=== PATIENT | male | born 1990 | race Caucasian/White ===

== ENCOUNTER 2017-01-27 13:16 | Emergency (ER) | payer OTHER ==
[~2017-01-27] VITALS: Ht 170.2 cm; Wt 59.6 kg
[~2017-01-27 13:16] MED LIST: ACET-1311 PO; MTR/600 PO
[2017-01-27 13:22] VITALS: TEMP 36.6; Ht 170.2 cm; Wt 59.6 kg
[2017-01-27] MEDS ORDERED: ACET-1256 PO (14:09)
[2017-01-27] MEDS ORDERED: NAPR1TAB9 PO (14:09)
[2017-01-27] MEDS ORDERED: ONDANSETRON INJ 2 MG/ML 2 ML VIAL IV STA (14:17)
[2017-01-27] MEDS ORDERED: MoRPHine SULFATE 10 MG/ML CARP/VIAL IV STA (14:17)
[2017-01-27] MEDS ORDERED: OPTIRAY 320 IV PRN (14:30)
[2017-01-27 14:46] LABS: BASO % 0.5 %; BASO ABS # 0.03 K/uL (0-0.2); COMPLETE YES; EOS % 2.3 %; HEMATOCRIT 43.2 % (42-52); IG% 0.2 %; LYMPH % 32.4 %; MEAN CELL VOLUME 85.9 fL (80-100); MEAN CORPUSCULAR HEMOGLOBIN 30.8 pg (25-34); MEAN CORPUSCULAR HGB CONC 35.9 g/dl (32-36); MEAN PLATELET VOLUME 9.7 fL (7.4-10.4); MONO % 10.4 %; NEUT % 54.2 %; PLATELET COUNT 210 K/uL (130-400); RED BLOOD COUNT 5.03 M/uL (4.7-6.1); WHITE BLOOD COUNT 5.56 K/uL (4.8-10.8)
[2017-01-27 15:05] LABS: BUN/CREATININE RATIO 9.2 (10-20); CREATININE 0.88 mg/dl (0.60-1.40); POTASSIUM 4.4 mmol/L (3.5-5.1)
--- NOTE | 2017-01-27 15:37 | DIAGNOSTIC IMAGING REPORT ---
CT ABD/PELVIS IV CONTRAST ONLY CLINICAL HISTORY: Right lower quadrant and suprapubic pain. COMPARISON STUDY: 10/22/2015 TECHNIQUE: Following the IV administration of 92 mL of Optiray-320, CT scan of the abdomen and pelvis was performed from the lung bases to the proximal femurs. Images are reviewed in the axial, sagittal, and coronal planes. IV contrast was administered without complication. CT DOSE: 265.18 mGy.cm FINDINGS: Lower chest: There are minor left basilar atelectatic changes Liver: The contrast-enhanced liver is normal in size, contour, and attenuation. There is no intrahepatic biliary ductal dilatation. The hepatic veins and portal veins are patent. Gallbladder: Unremarkable. Spleen: Normal in size and attenuation. Pancreas: Unremarkable. Adrenal glands: Unremarkable. Kidneys: No renal masses are visualized. There is mild fullness of the right collecting system. No ureteral calculi are visualized. Bowel: There are no transition zones indicate bowel obstruction. By history the appendix is surgically absent. There is no acute diverticulitis. Peritoneum: There is no intraperitoneal free air or abdominal ascites. Vasculature: The abdominal aorta is normal in course and caliber. Adenopathy: None. Pelvic viscera: The bladder is mildly distended. Skeletal structures: No destructive osseous lesions are seen. IMPRESSION: 1. No evidence of bowel obstruction. No evidence of free air 2. Surgically absent appendix. No acute inflammatory changes 3. Mild fullness of the right renal collecting system and right ureter. No calculi are visualized 4. Mild bladder distention Electronically signed by: Cheo Morales M.D. 01/27/2017 3:35 PM Dictated Date/Time: 01/27/2017 3:29 PM
[2017-01-27] MEDS ORDERED: KETOROLAC TROMETHAMINE 30 MG/ML VIAL IV STA (15:45)
[2017-01-27 16:24] LABS: URINE APPEARANCE CLEAR (CLEAR); URINE BILIRUBIN NEG (NEG); URINE COLOR YELLOW; URINE NITRITE NEG (NEG); URINE SPECIFIC GRAVITY 1.021 (1.000-1.030); UROBILINOGEN NEG (NEG); ZZUR CULT IF INDIC CLEAN CATCH NO
[2017-01-27 16:30] LABS: MANUAL MICROSCOPIC REQUIRED? NO; REVIEW REQ? NO
--- NOTE | 2017-01-27 16:51 | EMERGENCY ROOM VISIT NOTE ---
History First contact with patient: 14:08 Chief Complaint: GROIN PAIN Stated Complaint: GROIN AND ABD. PAIN History of Present Illness The patient is a 26 year old male who presents to the Emergency Room via private vehicle with complaints of "groin and abdominal pain". The patient states that he is moving from apartments, and in the process of moving his furniture yesterday afternoon around 2 PM he nearly dropped a recliner. He states that he had to reposition, and during this time he felt a pull in his lower abdomen and groin region. He states that the pain has worsened. He also has a generalized allergic in the testicular region. He denies any fevers, chills, blood in the urine, blood in the bowels, bowel irregularity, leg weakness, numbness or tingling in genital region, bowel or bladder incontinence. Review of Systems A complete 6-point Review of Systems was discussed with the patient, with pertinent positives and negatives listed in the History of Present Illness. All remaining Review of Systems questions can be considered negative unless otherwise specified. Past Medical/Surgical History Medical Problems: (1) Abdominal pain (2) Asthma (3) Dental caries (4) Dentalgia (5) Pain, dental (6) Peritonsillar abscess (7) Tonsillitis Surgical Problems: (1) History of appendectomy Family History Diabetes mellitus FH: heart disease FH: lung disease Hypertension Social History Smoking Status: Current Every Day Smoker Alcohol Use: occasionally Marital Status: single Housing Status: lives with family Occupation Status: student Current/Historical Medications Scheduled PRN Oxycodone Ir (Roxicodone Ir), 1-2 TAB PO Q4H PRN for Pain Miscellaneous Medications Acetaminophen (Tylenol), 1,000 MG PO Naproxen (Aleve), 220 MG PO Allergies Coded Allergies: No Known Allergies (Unverified , 01/27/17) Physical Exam Vital Signs Date Time Temp Pulse Resp B/P (MAP) Pulse Ox O2 Delivery O2 Flow Rate FiO2 01/27/17 16:53 64 20 117/67 97 01/27/17 15:15 68 16 115/68 100 01/27/17 13:22 36.6 70 20 120/72 97 Room Air Physical Exam VITAL SIGNS - Vital signs and nursing notes were reviewed. Patient is afebrile , normotensive, non-tachycardic and saturating well on room air 97%. GENERAL -26-year-old male appearing his stated age who is in no acute distress. Communicates well with provider and answers questions appropriately. SKIN - Without rashes. Unremarkable. LUNGS - Chest wall symmetric without accessory muscle use, intercostals retractions, or central cyanosis. Normal vesicular breath sounds CTA B/L. No wheezes, rales, or rhonchi appreciated. CARDIAC - RRR with S1/S2. No murmur, rubs, or gallops appreciated. ABDOMEN - Abdominal contour without pulsations or visible masses. BS normoactive all four quadrants. There is tenderness in the right lower quadrant , and suprapubic region. No palpable masses, hepatosplenomegaly, or ascites noted. EXTREMITIES - No clubbing or peripheral cyanosis. No pretibial edema present. Unremarkable lower extremity examination. +5/5 strength noted in UE/LE bilaterally. NEUROLOGIC - Cranial nerves II through XII grossly intact. Sensory intact to light touch throughout. Patellar reflexes +2/4. - (Pt. rpovided consent) testicular examination unremarkable. No tenderness to palpation overlying the testes. No penile discharge. No hernia noted. Medical Decision & Procedures ER Provider Diagnostic Interpretation: CT ABD/PELVIS IV CONTRAST ONLY CLINICAL HISTORY: Right lower quadrant and suprapubic pain. COMPARISON STUDY: 10/22/2015 TECHNIQUE: Following the IV administration of 92 mL of Optiray-320, CT scan of the abdomen and pelvis was performed from the lung bases to the proximal femurs. Images are reviewed in the axial, sagittal, and coronal planes. IV contrast was administered without complication. CT DOSE: 265.18 mGy.cm FINDINGS: Lower chest: There are minor left basilar atelectatic changes Liver: The contrast-enhanced liver is normal in size, contour, and attenuation. There is no intrahepatic biliary ductal dilatation. The hepatic veins and portal veins are patent. Gallbladder: Unremarkable. Spleen: Normal in size and attenuation. Pancreas: Unremarkable. Adrenal glands: Unremarkable. Kidneys: No renal masses are visualized. There is mild fullness of the right collecting system. No ureteral calculi are visualized. Bowel: There are no transition zones indicate bowel obstruction. By history the appendix is surgically absent. There is no acute diverticulitis. Peritoneum: There is no intraperitoneal free air or abdominal ascites. Vasculature: The abdominal aorta is normal in course and caliber. Adenopathy: None. Pelvic viscera: The bladder is mildly distended. Skeletal structures: No destructive osseous lesions are seen. IMPRESSION: 1. No evidence of bowel obstruction. No evidence of free air 2. Surgically absent appendix. No acute inflammatory changes 3. Mild fullness of the right renal collecting system and right ureter. No calculi are visualized 4. Mild bladder distention Electronically signed by: Cheo Morales M.D. 01/27/2017 3:35 PM Dictated Date/Time: 01/27/2017 3:29 PM TESTICULAR ULTRASOUND HISTORY: Pain Testicular pain s/p heavy lifting COMPARISON: None. FINDINGS: Right testis: Maximum dimension 4.1 cm. Normal vascular flow. Left testis: Maximum dimension 4.2 cm. Normal vascular flow. Inguinal regions. No evidence for hernia IMPRESSION: Normal testicular ultrasound. No evidence for hernia within the inguinal regions. Small reactive lymph node within the right inguinal region Electronically signed by: Sergio Liz M.D. 01/27/2017 4:58 PM Dictated Date/Time: 01/27/2017 4:57 PM Laboratory Results 01/27/17 14:25 Red Blood Count 5.03, Mean Corpuscular Volume 85.9, Mean Corpuscular Hemoglobin 30.8, Mean Corpuscular Hemoglobin Concent 35.9, Mean Platelet Volume 9.7, Neutrophils (%) (Auto) 54.2, Lymphocytes (%) (Auto) 32.4, Monocytes (%) (Auto) 10.4, Eosinophils (%) (Auto) 2.3, Basophils (%) (Auto) 0.5, Neutrophils # (Auto ) 3.01, Lymphocytes # (Auto) 1.80, Monocytes # (Auto) 0.58, Eosinophils # (Auto ) 0.13, Basophils # (Auto) 0.03 01/27/17 14:25 Test 01/27/17 14:25 01/27/17 16:10 White Blood Count 5.56 K/uL (4.8-10.8) Red Blood Count 5.03 M/uL (4.7-6.1) Hemoglobin 15.5 g/dL (14.0-18.0) Hematocrit 43.2 % (42-52) Mean Corpuscular Volume 85.9 fL (80-100) Mean Corpuscular Hemoglobin 30.8 pg (25-34) Mean Corpuscular Hemoglobin Concent 35.9 g/dl (32-36) Platelet Count 210 K/uL (130-400) Mean Platelet Volume 9.7 fL (7.4-10.4) Neutrophils (%) (Auto) 54.2 % Lymphocytes (%) (Auto) 32.4 % Monocytes (%) (Auto) 10.4 % Eosinophils (%) (Auto) 2.3 % Basophils (%) (Auto) 0.5 % Neutrophils # (Auto) 3.01 K/uL (1.4-6.5) Lymphocytes # (Auto) 1.80 K/uL (1.2-3.4) Monocytes # (Auto) 0.58 K/uL (0.11-0.59) Eosinophils # (Auto) 0.13 K/uL (0-0.5) Basophils # (Auto) 0.03 K/uL (0-0.2) RDW Standard Deviation 37.5 fL (36.4-46.3) RDW Coefficient of Variation 12.0 % (11.5-14.5) Immature Granulocyte % (Auto) 0.2 % Immature Granulocyte # (Auto) 0.01 K/uL (0.00-0.02) Anion Gap 3.0 mmol/L (3-11) Est Creatinine Clear Calc Drug Dose 109.1 ml/min Estimated GFR () 139.3 Estimated GFR (Non- 120.2 BUN/Creatinine Ratio 9.2 (10-20) Calcium Level 9.0 mg/dl (8.5-10.1) Urine Color YELLOW Urine Appearance CLEAR (CLEAR) Urine pH 8.0 (4.5-7.5) Urine Specific Diller 1.021 (1.000-1.030) Urine Protein NEG (NEG) Urine Glucose (UA) NEG (NEG) Urine Ketones NEG (NEG) Urine Occult Blood NEG (NEG) Urine Nitrite NEG (NEG) Urine Bilirubin NEG (NEG) Urine Urobilinogen NEG (NEG) Urine Leukocyte Esterase NEG (NEG) Medications Administered Medications (Trade) Dose Ordered Sig/Cresencio Route Start Time Stop Time Status Last Admin Dose Admin Morphine Sulfate (MoRPHine SULFATE INJ) 6 mg NOW STAT IV 01/27/17 14:17 01/27/17 14:19 DC 01/27/17 14:32 6 MG Ondansetron HCl (Zofran Inj) 4 mg NOW STAT IV 01/27/17 14:17 01/27/17 14:19 DC 01/27/17 14:32 4 MG Ketorolac Tromethamine (Toradol Inj) 30 mg NOW STAT IV 01/27/17 15:45 01/27/17 15:46 DC 01/27/17 16:30 30 MG Medical Decision Patient was seen and evaluated as above. After obtaining a thorough history and physical examination IV access was initiated and the above workup was performed. He presents to us today with inferior quadrant abdominal pain, suprapubic abdominal pain and testicular pain. This is all status post heavy lifting. Clinically he appears well. His vital signs are stable. He has been urinating and defecating without difficulty. There has been no blood within these functions. He requests nothing for pain. Testicular ultrasound, and CT abdomen and pelvis were obtained secondary to his presentation. These are negative for acute process. His lab work is unremarkable. At this time I suspect he is experiencing a muscle strain. He was educated upon management. He will be provided a short-term prescription for this. No red flags identified and the [place] drug monitoring system. The be given OxyIR. He was educated upon management, educated upon worrisome symptoms in which to return, had questions about discharge, and was discharged home in good condition. He is a follow-up regarding these findings of his CT scan. In evaluation treatment this patient following differential diagnoses were entertained: Intra-abdominal rupture, appendicitis, hernia, testicular rupture, among others. Impression Primary Impression: Abdominal pain Departure Information Dispostion Home / Self-Care Condition GOOD Prescriptions Oxycodone Ir (Roxicodone Ir) 5 Mg Tab 1-2 TAB PO Q4H Y for Pain, #21 TAB For Initial Treatment Prov: Elliot Giang PA-C 01/27/17 Referrals No Doctor, Assigned (PCP) Patient Instructions My [facility] Additional Instructions You have been treated in the Emergency Department your Abdominal Pain. Laboratory results and imaging studies have ruled out any emergent causes for your abdominal pain which would warrant admission or surgery. You have been prescribed Oxy IR to be used for pain control. This is a narcotic medication. You cannot drive or consume alcohol while on this medicine. This medicine should only be used for pain that cannot be controlled with over-the- counter pain medicines. For pain control, you can use the following [id number] medicines (if >12 yo): - Regular strength (325mg/tab) Tylenol (acetaminophen) 2 tabs every 4-6 hours as needed. Do not exceed 12 tablets in a 24 hour period. Avoid taking more than 4 grams (4000 mg) of Tylenol per day. This includes any other sources of acetaminophen you may take on a regular basis. - Regular strength (200 mg/tab) Advil (ibuprofen) 1-2 tabs every 4-6 hours as needed. Do not exceed a dose of 3200 mg per day. Drink plenty of water and stay well hydrated. As with any trip to the Emergency Department, you should follow-up with your Primary Care Provider from today's visit. Follow up for right renal fullness noted. Return to the emergency department if your symptoms persist despite treatment plan outlined above or if the following symptoms occur: increased fevers, chills , worsening nausea/vomiting, blood in your stool or urine. CT SCAN: CT ABD/PELVIS IV CONTRAST ONLY CLINICAL HISTORY: Right lower quadrant and suprapubic pain. COMPARISON STUDY: 10/22/2015 TECHNIQUE: Following the IV administration of 92 mL of Optiray-320, CT scan of the abdomen and pelvis was performed from the lung bases to the proximal femurs. Images are reviewed in the axial, sagittal, and coronal planes. IV contrast was administered without complication. CT DOSE: 265.18 mGy.cm FINDINGS: Lower chest: There are minor left basilar atelectatic changes Liver: The contrast-enhanced liver is normal in size, contour, and attenuation. There is no intrahepatic biliary ductal dilatation. The hepatic veins and portal veins are patent. Gallbladder: Unremarkable. Spleen: Normal in size and attenuation. Pancreas: Unremarkable. Adrenal glands: Unremarkable. Kidneys: No renal masses are visualized. There is mild fullness of the right collecting system. No ureteral calculi are visualized. Bowel: There are no transition zones indicate bowel obstruction. By history the appendix is surgically absent. There is no acute diverticulitis. Peritoneum: There is no intraperitoneal free air or abdominal ascites. Vasculature: The abdominal aorta is normal in course and caliber. Adenopathy: None. Pelvic viscera: The bladder is mildly distended. Skeletal structures: No destructive osseous lesions are seen. IMPRESSION: 1. No evidence of bowel obstruction. No evidence of free air 2. Surgically absent appendix. No acute inflammatory changes 3. Mild fullness of the right renal collecting system and right ureter. No calculi are visualized 4. Mild bladder distention Problem Qualifiers Primary Impression: Abdominal pain Abdominal location: lower abdomen, unspecified Qualified Codes: R10.30 - Lower abdominal pain, unspecified
[2017-01-27 16:53] VITALS: BP 117/67; PULSE 64; O2SAT 97
--- NOTE | 2017-01-27 17:00 | DIAGNOSTIC IMAGING REPORT ---
TESTICULAR ULTRASOUND HISTORY: Pain Testicular pain s/p heavy lifting COMPARISON: None. FINDINGS: Right testis: Maximum dimension 4.1 cm. Normal vascular flow. Left testis: Maximum dimension 4.2 cm. Normal vascular flow. Inguinal regions. No evidence for hernia IMPRESSION: Normal testicular ultrasound. No evidence for hernia within the inguinal regions. Small reactive lymph node within the right inguinal region Electronically signed by: Sergio Liz M.D. 01/27/2017 4:58 PM Dictated Date/Time: 01/27/2017 4:57 PM
[2017-01-27] MEDS ORDERED: OXYC1TAB3 PO (17:14)
== END 2017-01-27 17:28 | disposition home or self-care (01) ==
LOC: C.EDB 13:17 → C.EDD 17:28
DX: N50.819 Testicular pain, unspecified (principal); R10.31 Right lower quadrant pain; F17.210 Nicotine dependence, cigarettes, uncomplicated

== ENCOUNTER 2017-02-12 15:43 | Emergency (ER) | payer OTHER ==
[~2017-02-12] VITALS: Ht 170.2 cm; Wt 57.6 kg
[~2017-02-12 15:43] MED LIST changes: +ACET-1256 PO; -ACET-1311 PO; -MTR/600 PO; +NAPR1TAB9 PO; +OXYC1TAB3 PO
[2017-02-12 15:47] VITALS: TEMP 36.8; Ht 170.2 cm; Wt 57.6 kg
[2017-02-12] MEDS ORDERED: KETOROLAC TROMETHAMINE 30 MG/ML VIAL IV STA (16:23)
[2017-02-12] MEDS ORDERED: METOCLOPRAMIDE HCL INJ 5 MG/ML 2 ML VIAL IV STA (16:23)
[2017-02-12] MEDS ORDERED: SODIUM CHLORIDE 0.9% 1000ML 1,000 ML IV STA (16:23)
[2017-02-12] MEDS ORDERED: HYDROmorphone INJ 1 MG/ML SYR IV STA (16:23)
[2017-02-12] MEDS ORDERED: OPTIRAY 320 IV PRN (16:30)
[2017-02-12 17:10] LABS: BASO % 0.5 %; BASO ABS # 0.03 K/uL (0-0.2); COMPLETE YES; EOS % 1.8 %; HEMATOCRIT 43.1 % (42-52); IG% 0.2 %; LYMPH % 21.7 %; LYMPH ABS # 1.43 K/uL (1.2-3.4); MEAN CELL VOLUME 87.2 fL (80-100); MEAN CORPUSCULAR HGB CONC 36.7 g/dl (32-36); MEAN PLATELET VOLUME 9.5 fL (7.4-10.4); NEUT % 65.8 %; PLATELET COUNT 186 K/uL (130-400); RED BLOOD COUNT 4.94 M/uL (4.7-6.1)
[2017-02-12 17:13] LABS: URINE APPEARANCE TURBID (CLEAR); URINE COLOR DK YELLOW; URINE EPITHELIAL CELL AUTO >30 /lpf (0-5); URINE NITRITE NEG (NEG); URINE PH 8.5 (4.5-7.5); URINE SPECIFIC GRAVITY 1.035 (1.000-1.030); UROBILINOGEN NEG (NEG)
--- NOTE | 2017-02-12 17:14 | EMERGENCY ROOM VISIT NOTE ---
History Report prepared by Chantel: Ramila Candelario Under the Supervision of: Dr. Tereso Rivera M.D. First contact with patient: 15:50 Chief Complaint: GROIN PAIN Stated Complaint: DENTAL PAIN,PROLONGED GROIN AND AB PAIN History of Present Illness The patient is a 26 year old male who presents to the Emergency Room with complaints of worsening right groin pain for the past 2-3 weeks. The patient states that he injured his right groin area 2-3 weeks ago when he was trying to move furniture by himself. His pain radiates into his right abdomen. The patient rates his pain as an 8/10 in severity. He states that he is now unable to pear picker his 3 year old niece due to the pain. The patient also reports that one of his fillings fell out and he is now experiencing dental pain too. He has been taking Tylenol and naproxen for pain. He states he has not taken anything since last night before bed. Source of History: patient Onset: 2-3 weeks ago Position: other (right groin) Symptom Intensity: 8/10 Quality: other (radiating) Timing: worsening Modifying Factors (Relieving): tylenol, other (naproxen) Associated Symptoms: + abdominal pain Note: Pt notes dental pain. Review of Systems See HPI for pertinent positives & negatives. A total of 10 systems reviewed and were otherwise negative. Past Medical & Surgical Medical Problems: (1) Abdominal pain (2) Asthma (3) Dental caries (4) Dentalgia (5) Pain, dental (6) Peritonsillar abscess (7) Tonsillitis Surgical Problems: (1) History of appendectomy Family History Diabetes mellitus FH: heart disease FH: lung disease Hypertension Social History Smoking Status: Current Every Day Smoker Alcohol Use: occasionally Marital Status: single Housing Status: lives with family Occupation Status: student Current/Historical Medications Scheduled Penicillin V Potassium (Veetids), 1 TAB PO QID Scheduled PRN Oxycodone/Acetaminophen 5MG/325MG (Percocet 5MG/325MG), 1-2 TAB PO Q4H PRN for Pain Allergies Coded Allergies: No Known Allergies (Unverified , 02/12/17) Physical Exam Vital Signs Date Time Temp Pulse Resp B/P (MAP) Pulse Ox O2 Delivery O2 Flow Rate FiO2 02/12/17 20:12 65 16 101/60 100 Room Air 6/21/17 19:44 62 18 104/70 100 Room Air 02/12/17 18:32 57 16 95/51 100 Room Air 02/12/17 17:30 76 02/12/17 17:15 75 14 110/67 100 Room Air 02/12/17 15:47 36.8 124 16 122/79 99 Room Air Physical Exam GENERAL: Patient is a healthy-appearing well-nourished young male. HEAD: Normocephalic atraumatic EYES: Ocular movements intact pupils equal and react to light OROPHARYNX mucous membranes are moist no exudates present no erythema or edema present NECK: Supple no nuchal rigidity CHEST: Good equal expansion LUNGS: Clear and equal to auscultation CARDIAC: Normal S1 and S2 ABDOMEN: Soft nontender no guarding BACK: No CVA tenderness EXTREMITIES: No pain upon palpation normal muscle strength in all groups no clubbing cyanosis or edema NEURO: Patient is following commands and answering questions appropriately. Alert and oriented x3 Cranial Nerves 2-12 grossly intact Medical Decision & Procedures ER Provider Diagnostic Interpretation: Radiology results as stated below per my review and radiologist interpretation: CT ABD/PELVIS IV AND ORAL CONT CLINICAL HISTORY: Generalized abdominal pain COMPARISON STUDY: 01/27/2017 TECHNIQUE: Following the IV administration of 115 mL of Optiray-320, CT scan of the abdomen and pelvis was performed from the lung bases to the proximal femurs. Images are reviewed in the axial, sagittal, and coronal planes. IV contrast was administered without complication. CT DOSE: 276.23 mGy.cm FINDINGS: Lower chest: There are minimal dependent atelectatic changes. Liver: The contrast-enhanced liver is normal in size, contour, and attenuation. There is no intrahepatic biliary ductal dilatation. The hepatic veins and portal veins are patent. Gallbladder: Unremarkable. Spleen: Normal in size and attenuation. Pancreas: Unremarkable. Adrenal glands: Unremarkable. Kidneys: No renal masses are visualized. There is minimal prominence the right renal collecting system similar to the prior study. Bowel: There are no transition zones indicate bowel obstruction. There is no evidence of acute diverticulitis. There is no pathologic bowel wall thickening. By history the appendix is surgically absent. Peritoneum: There is no intraperitoneal free air or abdominal ascites. Vasculature: The abdominal aorta is normal in course and caliber. Adenopathy: None. Pelvic viscera: The bladder, and pelvic viscera are unremarkable. Skeletal structures: No destructive osseous lesions are seen. IMPRESSION: 1. No acute intra-abdominal or pelvic findings 2. No evidence of bowel obstruction. No evidence of free air 3. Minimal fullness of the right renal collecting system, unchanged from the prior study. 4. No evidence of acute diverticulitis Electronically signed by: Cheo Morales M.D. 02/12/2017 7:42 PM Dictated Date/Time: 02/12/2017 7:36 PM Laboratory Results 02/12/17 16:55 Red Blood Count 4.94, Mean Corpuscular Volume 87.2, Mean Corpuscular Hemoglobin 32.0, Mean Corpuscular Hemoglobin Concent 36.7, Mean Platelet Volume 9.5, Neutrophils (%) (Auto) 65.8, Lymphocytes (%) (Auto) 21.7, Monocytes (%) (Auto) 10.0, Eosinophils (%) (Auto) 1.8, Basophils (%) (Auto) 0.5, Neutrophils # (Auto ) 4.35, Lymphocytes # (Auto) 1.43, Monocytes # (Auto) 0.66, Eosinophils # (Auto ) 0.12, Basophils # (Auto) 0.03 02/12/17 16:55 Test 02/12/17 16:45 02/12/17 16:55 Urine Color DK YELLOW Urine Appearance TURBID (CLEAR) Urine pH 8.5 (4.5-7.5) Urine Specific Woodward 1.035 (1.000-1.030) Urine Protein NEG (NEG) Urine Glucose (UA) NEG (NEG) Urine Ketones TRACE (NEG) Urine Occult Blood NEG (NEG) Urine Nitrite NEG (NEG) Urine Bilirubin NEG (NEG) Urine Urobilinogen NEG (NEG) Urine Leukocyte Esterase NEG (NEG) Urine WBC (Auto) 1-5 /hpf (0-5) Urine RBC (Auto) 0-4 /hpf (0-4) Urine Hyaline Casts (Auto) 10-30 /lpf (0-5) Urine Epithelial Cells (Auto) >30 /lpf (0-5) Urine Bacteria (Auto) NEG (NEG) Urine Renal Epithelial Cells /lpf (0-5) White Blood Count 6.60 K/uL (4.8-10.8) Red Blood Count 4.94 M/uL (4.7-6.1) Hemoglobin 15.8 g/dL (14.0-18.0) Hematocrit 43.1 % (42-52) Mean Corpuscular Volume 87.2 fL (80-100) Mean Corpuscular Hemoglobin 32.0 pg (25-34) Mean Corpuscular Hemoglobin Concent 36.7 g/dl (32-36) Platelet Count 186 K/uL (130-400) Mean Platelet Volume 9.5 fL (7.4-10.4) Neutrophils (%) (Auto) 65.8 % Lymphocytes (%) (Auto) 21.7 % Monocytes (%) (Auto) 10.0 % Eosinophils (%) (Auto) 1.8 % Basophils (%) (Auto) 0.5 % Neutrophils # (Auto) 4.35 K/uL (1.4-6.5) Lymphocytes # (Auto) 1.43 K/uL (1.2-3.4) Monocytes # (Auto) 0.66 K/uL (0.11-0.59) Eosinophils # (Auto) 0.12 K/uL (0-0.5) Basophils # (Auto) 0.03 K/uL (0-0.2) RDW Standard Deviation 38.8 fL (36.4-46.3) RDW Coefficient of Variation 12.1 % (11.5-14.5) Immature Granulocyte % (Auto) 0.2 % Immature Granulocyte # (Auto) 0.01 K/uL (0.00-0.02) Anion Gap 6.0 mmol/L (3-11) Est Creatinine Clear Calc Drug Dose 84.4 ml/min Estimated GFR () 108.3 Estimated GFR (Non- 93.5 BUN/Creatinine Ratio 14.3 (10-20) Calcium Level 8.5 mg/dl (8.5-10.1) Total Bilirubin 0.5 mg/dl (0.2-1) Direct Bilirubin 0.1 mg/dl (0-0.2) Aspartate Amino Transf (AST/SGOT) 13 U/L (15-37) Alanine Aminotransferase (ALT/SGPT) 32 U/L (12-78) Alkaline Phosphatase 82 U/L (45-117) Total Protein 7.6 gm/dl (6.4-8.2) Albumin 4.1 gm/dl (3.4-5.0) Lipase 123 U/L (73-393) Labs reviewed by ED physician. Medications Administered Medications (Trade) Dose Ordered Sig/Cresencio Route Start Time Stop Time Status Last Admin Dose Admin Sodium Chloride 1,000 ml @ 999 mls/hr Q1H1M STAT IV 02/12/17 16:23 02/12/17 17:23 DC 02/12/17 16:23 999 MLS/HR Ketorolac Tromethamine (Toradol Inj) 30 mg NOW STAT IV 02/12/17 16:23 02/12/17 16:26 DC 02/12/17 17:11 30 MG Hydromorphone HCl (Dilaudid Inj) 1 mg NOW STAT IV 02/12/17 16:23 02/12/17 16:26 DC 02/12/17 17:11 1 MG Metoclopramide HCl (Reglan Inj) 10 mg NOW STAT IV 02/12/17 16:23 02/12/17 16:26 DC 02/12/17 17:10 10 MG Oxycodone/ Acetaminophen (Percocet 5/ 325MG Home Pack) 1 homepack UD ONCE PO 02/12/17 20:15 02/12/17 20:16 DC 02/12/17 20:15 1 HOMEPACK Penicillin V Potassium (Pen-Vk 500MG Home Pack) 1 homepack UD ONCE PO 02/12/17 20:15 02/12/17 20:16 DC 02/12/17 20:15 1 HOMEPACK Penicillin V Potassium (Veetids Tab) 500 mg NOW ONCE PO 02/12/17 20:15 02/12/17 20:16 DC 02/12/17 20:22 500 MG ED Course 1550: Past medical records reviewed. The patient was evaluated in room C8. A complete history and physical examination was performed. 1623: Reglan 10 mg IV, Dilaudid 1 mg IV, Toradol 30 mg IV, NSS 1000 ml @ 999 mls /hr IV 1901: I updated the patient and he is doing well. 2000: I reassessed the patient at this time. hE is feeling better and resting comfortably. I discussed the results and treatment plan with the patient. I answered all pertaining questions that he had. He expressed understanding and verbalized agreement. The patient will be discharged home. 2015: Veetids tab 500 mg PO, Penicillin V Potassium 1 homepack PO, Percocet 5/ 325 mg PO 1 homepack Medical Decision Differential diagnosis: Etiologies such as appendicitis, diverticulitis, PUD, biliary pathology, UTI, pancreatitis, obstruction, mesenteric ischemia, aortic pathology, infections, inflammatory bowel disease, renal colic, as well as others were entertained. Medication Reconciliation: I attest that I have personally reviewed the patient' s current medication list. Blood Pressure Screening: Patient was found to have normal blood pressure on screening and does not require follow up. This is a 26-year-old male who presents emergency department complaining of diffuse abdominal pain as well as dental pain. The patient was first seen in the emergency department and had a CT scan without oral contrast. Due to how thin the patient is and the pain he is experiencing he was sent for CAT scan of the abdomen pelvis with contrast. In the meantime patient was given an IV along saline bolus, Toradol, Dilaudid. Repeat examination revealed improvement patient's symptoms. I do feel that the patient as well as to be discharged home for follow-up with primary care physician. Patient was in agreement with the treatment plan. Impression Primary Impression: Abdominal pain Scribe Attestation The scribe's documentation has been prepared under my direction and personally reviewed by me in its entirety. I confirm that the note above accurately reflects all work, treatment, procedures, and medical decision making performed by me. Departure Information Dispostion Home / Self-Care Prescriptions Oxycodone/Acetaminophen 5MG/325MG (PERCOCET 5MG/325MG) Tab 1-2 TAB PO Q4H Y for Pain, #14 TAB Prov: Tereso Rivera MD 02/12/17 Penicillin V Potassium (VEETIDS) 500 Mg Tab 1 TAB PO QID for 10 Days, #40 TAB Prov: Tereso Rivera MD 02/12/17 Referrals No Doctor, Assigned (PCP) Forms HOME CARE DOCUMENTATION FORM, IMPORTANT VISIT INFORMATION, WORK / SCHOOL INSTRUCTIONS Patient Instructions Abdominal Pain - [facility], Diet Clear Liquid Dc, ED Tooth Pain, My [facility] Additional Instructions Follow up with your Primary Care Physician (PCP). For a new PCP call [phone]. Follow up with Dr Vigil's office Clear liquid diet next 48 hours You received narcotic or benzodiazepene medication while in the emergency room today. Do not drive, operate heavy machinery, or drink alcohol under the influence of this medication. Take 600 mg Ibuprofen every 6 hours Take Percocet for breakthrough pain You have been examined and treated today on an emergency basis only. This is not a substitute for, or an effort to provide, complete comprehensive medical care. It is impossible to recognize and treat all injuries or illnesses in a single emergency department visit. It is therefore important that you follow up closely with your PCP. Call as soon as possible for an appointment. Thank you for your time and consideration. I look forward to speaking with you again soon. Please don't hesitate to call us if you have any questions. Problem Qualifiers Primary Impression: Abdominal pain Abdominal location: generalized Qualified Codes: R10.84 - Generalized abdominal pain
[2017-02-12 17:26] LABS: MANUAL MICROSCOPIC REQUIRED? NO; REVIEW REQ? YES; SULFASALICYLIC ACID NEG (NEG); URINE BILIRUBIN NEG (NEG)
[2017-02-12 17:32] LABS: BUN/CREATININE RATIO 14.3 (10-20); CALCIUM 8.5 mg/dl (8.5-10.1); CREATININE 1.1 mg/dl (0.60-1.40); POTASSIUM 4.2 mmol/L (3.5-5.1)
--- NOTE | 2017-02-12 19:43 | DIAGNOSTIC IMAGING REPORT ---
CT ABD/PELVIS IV AND ORAL CONT CLINICAL HISTORY: Generalized abdominal pain COMPARISON STUDY: 01/27/2017 TECHNIQUE: Following the IV administration of 115 mL of Optiray-320, CT scan of the abdomen and pelvis was performed from the lung bases to the proximal femurs. Images are reviewed in the axial, sagittal, and coronal planes. IV contrast was administered without complication. CT DOSE: 276.23 mGy.cm FINDINGS: Lower chest: There are minimal dependent atelectatic changes. Liver: The contrast-enhanced liver is normal in size, contour, and attenuation. There is no intrahepatic biliary ductal dilatation. The hepatic veins and portal veins are patent. Gallbladder: Unremarkable. Spleen: Normal in size and attenuation. Pancreas: Unremarkable. Adrenal glands: Unremarkable. Kidneys: No renal masses are visualized. There is minimal prominence the right renal collecting system similar to the prior study. Bowel: There are no transition zones indicate bowel obstruction. There is no evidence of acute diverticulitis. There is no pathologic bowel wall thickening. By history the appendix is surgically absent. Peritoneum: There is no intraperitoneal free air or abdominal ascites. Vasculature: The abdominal aorta is normal in course and caliber. Adenopathy: None. Pelvic viscera: The bladder, and pelvic viscera are unremarkable. Skeletal structures: No destructive osseous lesions are seen. IMPRESSION: 1. No acute intra-abdominal or pelvic findings 2. No evidence of bowel obstruction. No evidence of free air 3. Minimal fullness of the right renal collecting system, unchanged from the prior study. 4. No evidence of acute diverticulitis Electronically signed by: Cheo Morales M.D. 02/12/2017 7:42 PM Dictated Date/Time: 02/12/2017 7:36 PM
[2017-02-12] MEDS ORDERED: OXYC-57 PO (20:07)
[2017-02-12] MEDS ORDERED: PENI500T2 PO (20:07)
[2017-02-12 20:12] VITALS: BP 101/60; PULSE 65; O2SAT 100
[2017-02-12] MEDS ORDERED: PENICILLIN HOME PACK 500MG (4 DOSES)BTL PO ONE (20:15)
[2017-02-12] MEDS ORDERED: PERCOCET HOME PACK PO ONE (20:15)
[2017-02-12] MEDS ORDERED: PENICILLIN V POTASSIUM 250 MG TAB PO ONE (20:15)
== END 2017-02-12 20:34 | disposition home or self-care (01) ==
LOC: C.EDB 15:44 → C.EDC 20:34
DX: R10.84 Generalized abdominal pain (principal); J45.909 Unspecified asthma, uncomplicated; F17.210 Nicotine dependence, cigarettes, uncomplicated; Z83.3 Family history of diabetes mellitus; Z82.49 Family history of ischemic heart disease and other diseases of the circulatory system

== ENCOUNTER 2017-04-26 15:33 | Emergency (ER) | payer OTHER ==
[~2017-04-26] VITALS: Ht 170.2 cm; Wt 56.7 kg
[~2017-04-26 15:33] MED LIST changes: -ACET-1256 PO; -NAPR1TAB9 PO; +OXYC-57 PO; -OXYC1TAB3 PO
[2017-04-26 15:37] VITALS: Ht 170.2 cm; Wt 56.7 kg
[2017-04-26] MEDS ORDERED: NAPR1TAB9 PO (15:47)
[2017-04-26] MEDS ORDERED: ACET-1256 PO (15:47)
[2017-04-26] MEDS ORDERED: IBUP-1050 PO (15:47)
[2017-04-26] MEDS ORDERED: CLIN300C2 PO (15:59)
--- NOTE | 2017-04-26 16:00 | EMERGENCY ROOM VISIT NOTE ---
ED Visit Note First contact with patient: 15:40 CHIEF COMPLAINT: Toothache HISTORY OF PRESENT ILLNESS: This 26-year-old male patient presented to the emergency department ambulatory with a progressive toothache for past to to 4 days. The patient believes it is coming from right upper tooth. The pain is now steady and severe and radiates to the face. The patient does have a dentist appointment set up. The patient states that he saw his dentist earlier this week and was prescribed antibiotics but he did not pick them up. They rate their pain a 10/10 and the ibuprofen and Tylenol they have been taking has not relieved the pain. Denies facial swelling or fever. The patient denies any discharge from the mouth. REVIEW OF SYSTEMS: A 6 system review of systems was completed with positives and pertinent negatives listed in the HPI. ALLERGIES: No known drug allergies MEDICATIONS: None PMH: None SOCIAL HISTORY: She lives locally PHYSICAL EXAM: Vitals are noted on the nurse's note and reviewed by myself. Vital signs stable. Temperature []C orally. GENERAL: This is a 26-year-old male, in no acute distress, nondiaphoretic, well-developed well-nourished. Mouth: The right upper tooth is very carious and the gum is swollen and tender around it, without any discharge or signs of an abscess. The remainder of the pharynx and tonsils are without erythema, edema, or exudate. The airway is patent. There is no facial swelling, cervical or submandibular lymphadenopathy. The patient appears uncomfortable and in pain. The patient has overall fair dental hygiene. ED COURSE: The patient was seen and examined. He is afebrile. He is nontoxic in appearance. He has no facial swelling. There is no drainage. The patient initially stated that his dentist did nothing for him but then stated he wrote a prescription for antibiotics which the patient has not yet picked up or started. I did review the prescription drug monitoring website. The patient has received 22 prescriptions from 19 providers and used 8 different pharmacies in the last several years. He has gotten prescriptions in multiple different cities. The quantities are usually for a very small amount. He has been to this emergency department multiple times for dental pain in the last time was told that he would not be prescribed narcotics anymore for dental pain. I agreed to give the patient a prescription for clindamycin. He should try Anbesol. He was counseled on the appropriate use of Tylenol and ibuprofen. He was given information for [facility] and Dr. Cates. He was advised that the antibiotic would be the most helpful thing. I advised him I'm not comfortable prescribing him narcotics at this time. He should return with worsening symptoms. Problem List Medical Problems: (1) Abdominal pain Status: Resolved (2) Asthma Status: Chronic (3) Dental caries Status: Chronic (4) Dentalgia Status: Resolved (5) Pain, dental Status: Resolved (6) Peritonsillar abscess Status: Resolved (7) Tonsillitis Status: Resolved Surgical Problems: (1) History of appendectomy Status: Resolved Current/Historical Medications Scheduled Clindamycin Hcl (Cleocin), 300 MG PO QID Scheduled PRN Acetaminophen (Tylenol), 1,000 MG PO DIRECTED PRN for Pain Ibuprofen (Advil), 200-800 MG PO Q4H PRN for Pain Naproxen (Aleve), 220-440 MG PO DIRECTED PRN for Pain Allergies Coded Allergies: No Known Allergies (Unverified , 04/26/17) Vital Signs Date Time Temp Pulse Resp B/P (MAP) Pulse Ox O2 Delivery O2 Flow Rate FiO2 04/26/17 16:07 36.5 83 20 120/66 100 04/26/17 15:37 36.5 83 20 120/66 100 Room Air Departure Information Impression Primary Impression: Dental caries Dispostion Home / Self-Care Condition GOOD Prescriptions Clindamycin Hcl (CLEOCIN) 300 Mg Cap 300 MG PO QID for 7 Days, #28 CAP Prov: Aggie Peck PA-C 04/26/17 Referrals No Doctor, Assigned (PCP) Deshawn Cates M.D. Patient Instructions My [facility] Additional Instructions Clindamycin every 6 hours for 7 days for infection Motrin 600 mg every 6-8 hours or moderate pain Tylenol 1 g every 4-6 hours but do not exceed 4 g of Tylenol in 24 hours You may try Anbesol Contact [facility], Dr. Cates or one of the maxillofacial surgeons to schedule a follow-up appointment Return with fevers or any worsening symptoms
[2017-04-26 16:07] VITALS: BP 120/66; PULSE 83; TEMP 36.5; O2SAT 100
== END 2017-04-26 16:07 | disposition home or self-care (01) ==
LOC: C.EDB 15:35 → C.EDD 16:07
DX: K02.9 Dental caries, unspecified (principal); J45.909 Unspecified asthma, uncomplicated

== ENCOUNTER 2017-07-30 07:12 | Emergency (ER) | payer OTHER ==
[~2017-07-30] VITALS: Ht 170.2 cm; Wt 54.8 kg
[~2017-07-30 07:12] MED LIST changes: +ACET-1256 PO; +IBUP-1050 PO; +NAPR1TAB9 PO; -OXYC-57 PO
[2017-07-30 07:17] VITALS: TEMP 36.6; Ht 170.2 cm; Wt 54.8 kg
[2017-07-30] MEDS ORDERED: MoRPHine SULFATE 4 MG/ML 1 ML CARP\\VIAL IV STA (08:02)
--- NOTE | 2017-07-30 08:08 | EMERGENCY ROOM VISIT NOTE ---
History First contact with patient: 07:32 Chief Complaint: GROIN PAIN Stated Complaint: GROIN/ABDOMINAL PAIN/INJURY History of Present Illness The patient is a 27 year old male who presents to the Emergency Room with complaints of groin injury. Patient states that he was getting something out of the attic stepping over an exercise bike and he tripped and fell, straddling a metal bar and landing directly on his testicles. He states he initially had pain that seemed to improve and he went to bed without any significant pain. This morning when he woke up and got out of bed, he had immediate sharp pain on the left with standing. He states the pain radiates up from the testicle into his groin and lower abdomen. He denies any significant injury to his testicles in the past. He denies any hematuria, dysuria, or purulent drainage from the penis. He denies any significant swelling or bruising. He tried ice to the area, however he states that this did not help. He has not taken any medications for the pain. He denies any other associated injuries, denies headache, denies chest pain, denies shortness of breath, denies back pain. Review of Systems A complete 10 point review of systems was reviewed with the patient with pertinent positives and negatives as per history of present illness. All else were negative. Past Medical/Surgical History Medical Problems: (1) Abdominal pain (2) Asthma (3) Dental caries (4) Dentalgia (5) Pain, dental (6) Peritonsillar abscess (7) Tonsillitis Surgical Problems: (1) History of appendectomy Family History Diabetes mellitus FH: heart disease FH: lung disease Hypertension Social History Smoking Status: Current Every Day Smoker Alcohol Use: occasionally Marital Status: single Housing Status: lives with family Occupation Status: student Current/Historical Medications Scheduled PRN Acetaminophen (Tylenol), 1,000 MG PO DIRECTED PRN for Pain Ibuprofen (Advil), 200-800 MG PO Q4H PRN for Pain Naproxen (Aleve), 220-440 MG PO DIRECTED PRN for Pain Allergies NKA Physical Exam Vital Signs Date Time Temp Pulse Resp B/P (MAP) Pulse Ox O2 Delivery O2 Flow Rate FiO2 07/30/17 10:34 72 18 105/62 98 07/30/17 09:12 77 18 102/60 97 Room Air 07/30/17 07:17 36.6 116 18 131/86 100 Room Air Physical Exam CONSTITUTIONAL: No acute distress, but does appear to be in some pain. Well appearing and well nourished. Alert and oriented X 4 with normal affect. HEENT: Normocephalic, atraumatic. Pupils equal, round and reactive to light, EOMI. TMs normal. Pharynx normal. NECK: Supple, full active range of motion without discomfort. RESPIRATORY: Clear to auscultation bilaterally with no wheezing, crackles, rhonchi or stridor. Equal expansion bilaterally. CARDIOVASCULAR: Regular rate and rhythm with no murmurs, rubs or gallops. Normal peripheral perfusion. No edema. GASTROINTESTINAL: Tenderness along the left inguinal crease into the left lower quadrant to palpation. Abdomen is otherwise soft, nontender, and nondistended. Bowel sounds present in all quadrants. GENITOURINARY: Testicles descended and equal bilaterally, soft, left testicle is tender to palpation. No swelling or ecchymosis. The scrotal skin is not red or warm. There is no swelling or tenderness to the penile shaft, no blood or drainage at the meatus. MUSCULOSKELETAL: Full range of motion of all joints without discomfort. INTEGUMENTARY: No rash or other significant dermatologic conditions noted. NEUROLOGIC: Cranial nerves II-XII grossly intact. No focal neurologic deficits noted. Medical Decision & Procedures ER Provider Diagnostic Interpretation: SCROTAL ULTRASOUND CLINICAL HISTORY: Straddle injury, eval torsion, hematoma. COMPARISON STUDY: Testicular ultrasound January 27, 2017. TECHNIQUE: Grayscale and color and duplex Doppler sonography of the scrotum was performed. FINDINGS: The right testis measures 4.1 x 1.8 x 1.9 cm and the left testis measures 4.2 x 1.9 x 2 cm. Color flow within each testis is symmetric. There is no testicular mass or hematoma. A few tiny epididymal cysts are noted bilaterally. IMPRESSION: Unremarkable scrotal ultrasound. No testicular torsion, mass or hematoma. Laboratory Results 07/30/17 08:00 Red Blood Count 5.23, Mean Corpuscular Volume 83.9, Mean Corpuscular Hemoglobin 31.4, Mean Corpuscular Hemoglobin Concent 37.4, Mean Platelet Volume 10.0, Neutrophils (%) (Auto) 47.2, Lymphocytes (%) (Auto) 41.5, Monocytes (%) (Auto) 9.7, Eosinophils (%) (Auto) 1.1, Basophils (%) (Auto) 0.4, Neutrophils # (Auto) 3.37, Lymphocytes # (Auto) 2.96, Monocytes # (Auto) 0.69, Eosinophils # (Auto) 0.08, Basophils # (Auto) 0.03 07/30/17 08:00 Test 07/30/17 08:00 White Blood Count 7.14 K/uL (4.8-10.8) Red Blood Count 5.23 M/uL (4.7-6.1) Hemoglobin 16.4 g/dL (14.0-18.0) Hematocrit 43.9 % (42-52) Mean Corpuscular Volume 83.9 fL (80-100) Mean Corpuscular Hemoglobin 31.4 pg (25-34) Mean Corpuscular Hemoglobin Concent 37.4 g/dl (32-36) Platelet Count 180 K/uL (130-400) Mean Platelet Volume 10.0 fL (7.4-10.4) Neutrophils (%) (Auto) 47.2 % Lymphocytes (%) (Auto) 41.5 % Monocytes (%) (Auto) 9.7 % Eosinophils (%) (Auto) 1.1 % Basophils (%) (Auto) 0.4 % Neutrophils # (Auto) 3.37 K/uL (1.4-6.5) Lymphocytes # (Auto) 2.96 K/uL (1.2-3.4) Monocytes # (Auto) 0.69 K/uL (0.11-0.59) Eosinophils # (Auto) 0.08 K/uL (0-0.5) Basophils # (Auto) 0.03 K/uL (0-0.2) RDW Standard Deviation 36.3 fL (36.4-46.3) RDW Coefficient of Variation 11.9 % (11.5-14.5) Immature Granulocyte % (Auto) 0.1 % Immature Granulocyte # (Auto) 0.01 K/uL (0.00-0.02) Anion Gap 6.0 mmol/L (3-11) Est Creatinine Clear Calc Drug Dose 89.3 ml/min Estimated GFR () 123.7 Estimated GFR (Non- 106.7 BUN/Creatinine Ratio 6.7 (10-20) Calcium Level 9.2 mg/dl (8.5-10.1) Medications Administered Medications (Trade) Dose Ordered Sig/Cresecnio Route Start Time Stop Time Status Last Admin Dose Admin Morphine Sulfate (MoRPHine SULFATE INJ) 4 mg NOW STAT IV 07/30/17 08:02 07/30/17 08:03 DC 07/30/17 08:37 4 MG Ketorolac Tromethamine (Toradol Inj) 15 mg NOW STAT IV 07/30/17 09:28 07/30/17 09:29 DC 07/30/17 09:40 15 MG Medical Decision CC: Patient presenting with complaint of scrotal injury Interpretation of Labs: No leukocytosis, no anemia, no electrolyte abnormality, normal renal function. Urine dip negative for blood. Differential Diagnosis: Includes, but not limited to contusion, hematoma, testicular torsion, scrotal edema, rupture, among others. Medication Reconciliation: I attest that I have personally reviewed the patient' s current medication list. Vital signs review: I reviewed the patient's vital signs and interpret them as follows: T: Afebrile; BP: Normotensive; HR: Tachycardic; RR: WNL; Pulse Ox : WNL on RA. Blood pressure screening: The patient was found to have normal blood pressure on screening and does not require follow-up for repeat blood pressure check. Summary: Patient was evaluated at bedside, history and physical exam performed. Patient is alert and oriented, no acute distress, but appears uncomfortable and in pain. Resting on his side in the stretcher. Testicles are soft, equal in size, left is tender. No ecchymosis, no swelling, no penile discharge or blood at the meatus. Orders were placed at bedside for labs, UA, morphine for pain, scrotal ultrasound to evaluate for torsion. Patient discussed with Dr. Rivera, who agrees with my assessment and plan. Labs reviewed as above, no acute abnormalities. US negative for any acute injuries, no torsion. Toradol given for additional pain management. Patient reassessed multiple times throughout ED stay, he reports improved pain after morphine and Toradol, appears much more comfortable. Tachycardia resolved. He was updated on all results and plan for discharge, he was encouraged to follow up with his PCP and urologist. He was given strict return precautions if he symptoms worsen, he verbalized understanding. Patient was discharged home in stable condition and ambulatory. Blood Pressure Screening Patient's blood pressure: Normal blood pressure Impression Primary Impression: Injury to scrotum Departure Information Dispostion Home / Self-Care Condition GOOD Referrals No Doctor, Assigned (PCP) Mustapha Ryan MD, Urology Patient Instructions ED Contusion Testicles Or Scrotum, My [facility] Additional Instructions Ice to the affected area for 20 minutes at a time off and on throughout the day. This is to help with pain and swelling. Ibuprofen 600 mg every 6-8 hours as need for pain. Do not take more than 2400 mg in 24 hours.. Tylenol 1000 mg every 8 hours as needed for pain. Do not take more than 3000 mg in 24 hours. You may alternate between ibuprofen and Tylenol every 3-4 hours for improved pain control. Drink plenty of fluids to stay hydrated. Follow-up with the urologist in the next few days if her pain has not resolved. Please return to the emergency department for severe worsening pain, increased swelling or redness of the testicles or scrotum, blood in your urine or inability to urinate, or any other concerns. Problem Qualifiers Primary Impression: Injury to scrotum Encounter type: initial encounter Qualified Codes: S39.94XA - Unspecified injury of external genitals, initial encounter
[2017-07-30 08:13] LABS: BASO % 0.4 %; BASO ABS # 0.03 K/uL (0-0.2); COMPLETE YES; EOS % 1.1 %; HEMATOCRIT 43.9 % (42-52); IG% 0.1 %; LYMPH % 41.5 %; LYMPH ABS # 2.96 K/uL (1.2-3.4); MEAN CELL VOLUME 83.9 fL (80-100); MEAN CORPUSCULAR HEMOGLOBIN 31.4 pg (25-34); MEAN CORPUSCULAR HGB CONC 37.4 g/dl (32-36); MONO % 9.7 %; NEUT % 47.2 %; PLATELET COUNT 180 K/uL (130-400); RED BLOOD COUNT 5.23 M/uL (4.7-6.1); WHITE BLOOD COUNT 7.14 K/uL (4.8-10.8)
[2017-07-30 08:36] LABS: BUN/CREATININE RATIO 6.7 (10-20); CALCIUM 9.2 mg/dl (8.5-10.1); CREATININE 0.98 mg/dl (0.60-1.40); POTASSIUM 3.5 mmol/L (3.5-5.1)
--- NOTE | 2017-07-30 09:02 | DIAGNOSTIC IMAGING REPORT ---
SCROTAL ULTRASOUND CLINICAL HISTORY: Straddle injury, eval torsion, hematoma. COMPARISON STUDY: Testicular ultrasound January 27, 2017. TECHNIQUE: Grayscale and color and duplex Doppler sonography of the scrotum was performed. FINDINGS: The right testis measures 4.1 x 1.8 x 1.9 cm and the left testis measures 4.2 x 1.9 x 2 cm. Color flow within each testis is symmetric. There is no testicular mass or hematoma. A few tiny epididymal cysts are noted bilaterally. IMPRESSION: Unremarkable scrotal ultrasound. No testicular torsion, mass or hematoma. Electronically signed by: Ezequiel Yan M.D. 07/30/2017 9:01 AM Dictated Date/Time: 07/30/2017 8:59 AM
[2017-07-30] MEDS ORDERED: KETOROLAC TROMETHAMINE 30 MG/ML VIAL IV STA (09:28)
[2017-07-30 10:34] VITALS: BP 105/62; PULSE 72; O2SAT 98
== END 2017-07-30 10:41 | disposition home or self-care (01) ==
LOC: C.EDB 07:12 → C.EDA 10:41
DX: S39.94XA Unspecified injury of external genitals, initial encounter (principal); W01.0XXA Fall on same level from slipping, tripping and stumbling without subsequent striking against object, initial encounter; Y93.89 Activity, other specified; Y92.008 Other place in unspecified non-institutional (private) residence as the place of occurrence of the external cause; F17.200 Nicotine dependence, unspecified, uncomplicated; Z90.89 Acquired absence of other organs; Z83.3 Family history of diabetes mellitus; Z82.49 Family history of ischemic heart disease and other diseases of the circulatory system